=== PATIENT | male | born 1945 ===

== ENCOUNTER 2018-12-24 08:31 | Outpatient (CLI) | payer OTHER | END 2018-12-24 08:32 | disposition home or self-care (01) | LOC: C.MRIC 08:31 | DX: M50.10 Cervical disc disorder with radiculopathy, unspecified cervical region (principal); M50.122 Cervical disc disorder at C5-C6 level with radiculopathy ==

== ENCOUNTER 2019-01-10 14:54 | Outpatient (CLI) | payer OTHER | END 2019-01-10 14:55 | disposition home or self-care (01) | LOC: C.MRIC 14:54 | DX: M54.5 Low back pain (principal) ==